=== PATIENT | female | born 1970 | race American Indian/Alaskan Native ===

== ENCOUNTER 2016-07-09 06:49 | Emergency (ER) | payer BC ==
[2016-07-09 08:06] VITALS: BP 122/75
--- NOTE | 2016-07-09 08:40 | Emergency Department Report ---
ED General Adult HPI - General Chief complaint: Sore Throat Stated complaint: BODY ACHES/THROAT PAIN Time Seen by Provider: 07/09/16 08:18 Source: patient Mode of arrival: Ambulatory Limitations: No Limitations - History of Present Illness Initial comments: Patient presents with one-month (onset 06/03/16) history of burning type pain in throat person worsened when she lays down. Reports feeling of fullness in throat when in reclining position. States no response on amoxicillin and benzonatate 2 prescribed by PCP. Denies SOB, chest pain, weakness, tingling, numbness, abdomen or flank pain, urinary symptoms. Denies personal/family hx of SD. Also c/o chronic right knee pain and intermittent migraine. States HX of migraine not responding to Tramadol. Denies migraine as of today. LMP: Partial hysterectomy 2012. - Related Data Home Medications Medication Instructions Recorded Confirmed Last Taken traMADol 50 mg PO Q6H PRN 09/19/15 09/19/15 09/19/15 Previous Rx's Medication Instructions Recorded Last Taken Type ALPRAZolam [Xanax] 0.5 mg PO BID PRN #14 tab 03/26/13 09/19/15 Rx Albuterol Sulfate [Ventolin HFA] 2 puff IH Q4H PRN #1 hfa.aer.ad 09/20/15 Unknown Rx Azithromycin [Zithromax] 250 mg PO DAILY #1 pkg 09/20/15 Unknown Rx Loratadine [Claritin] 10 mg PO DAILY #30 tablet 09/20/15 Unknown Rx Prednisone [predniSONE 10 mg 10 mg PO .TAPER #1 tab.ds.pk 09/20/15 Unknown Rx (6-Day Pack, 21 Tabs)] Promethazine /Codeine 5 ml PO Q6H PRN #150 ml 09/20/15 Unknown Rx [Phenergan/Codeine 6.25-10 mg/5 ml] Omeprazole 20 mg PO QDAY #14 capsule. 07/09/16 Unknown Rx Allergies Allergy/AdvReac Type Severity Reaction Status Date / Time No Known Allergies Allergy Verified 07/09/16 08:01 ED Review of Systems ROS: Stated complaint: BODY ACHES/THROAT PAIN Other details as noted in HPI Comment: All other systems reviewed and negative ED Past Medical Hx - Past Medical History Additional medical history: Breast cancer - Surgical History Hx Breast Surgery: Yes (Double mastectomy) - Social History Smoking Status: Never Smoker Substance Use Type: None - Medications Home Medications: Home Medications Medication Instructions Recorded Confirmed Last Taken Type ALPRAZolam [Xanax] 0.5 mg PO BID PRN #14 tab 03/26/13 09/19/15 09/19/15 Rx traMADol 50 mg PO Q6H PRN 09/19/15 09/19/15 09/19/15 History Albuterol Sulfate [Ventolin HFA] 2 puff IH Q4H PRN #1 hfa.aer.ad 09/20/15 Unknown Rx Azithromycin [Zithromax] 250 mg PO DAILY #1 pkg 09/20/15 Unknown Rx Loratadine [Claritin] 10 mg PO DAILY #30 tablet 09/20/15 Unknown Rx Prednisone [predniSONE 10 mg 10 mg PO .TAPER #1 tab.ds.pk 09/20/15 Unknown Rx (6-Day Pack, 21 Tabs)] Promethazine /Codeine 5 ml PO Q6H PRN #150 ml 09/20/15 Unknown Rx [Phenergan/Codeine 6.25-10 mg/5 ml] Omeprazole 20 mg PO QDAY #14 capsule. 07/09/16 Unknown Rx ED Physical Exam - General Limitations: No Limitations General appearance: alert, in no apparent distress - Head Head exam: Present: atraumatic, normocephalic - Eye Eye exam: Present: normal appearance, PERRL, EOMI. Absent: scleral icterus, conjunctival injection, periorbital swelling, periorbital tenderness - ENT ENT exam: Present: normal exam, normal orophraynx, mucous membranes moist, TM's normal bilaterally. Absent: normal external ear exam - Neck Neck exam: Present: normal inspection, full ROM. Absent: tenderness, meningismus, lymphadenopathy - Respiratory Respiratory exam: Present: normal lung sounds bilaterally. Absent: respiratory distress, wheezes, rales, rhonchi, stridor, chest wall tenderness, accessory muscle use, decreased breath sounds, prolonged expiratory - Cardiovascular Cardiovascular Exam: Present: regular rate, normal rhythm - GI/Abdominal GI/Abdominal exam: Present: soft, normal bowel sounds. Absent: distended, tenderness, guarding, rebound, rigid, organomegaly - Extremities Exam Extremities exam: Present: normal inspection, full ROM, normal capillary refill. Absent: tenderness, pedal edema, joint swelling, calf tenderness - Back Exam Back exam: Present: normal inspection, full ROM. Absent: tenderness, CVA tenderness (R), CVA tenderness (L) - Neurological Exam Neurological exam: Present: alert, oriented X3, normal gait, reflexes normal. Absent: motor sensory deficit - Psychiatric Psychiatric exam: Present: normal affect, normal mood - Skin Skin exam: Present: warm, dry, intact, normal color. Absent: rash ED Course Vital Signs 07/09/16 08:01 Temperature 98.2 F Pulse Rate 88 Respiratory 16 Rate Blood Pressure 122/75 O2 Sat by Pulse 98 Oximetry Critical care attestation.: If time is entered above; I have spent that time in minutes in the direct care of this critically ill patient, excluding procedure time. ED Disposition Clinical Impression: Heart burn Disposition: DISCHARGED TO HOME OR SELFCARE Is pt being admited?: No Does the pt Need Aspirin: No Condition: Stable Instructions: Gastroesophageal Reflux Disease (ED) Additional Instructions: Follow instructions for care. Use medication as prescribed. Follow up with GI specialist for heart burn. Follow up with your PCP for chronic knee pain, migraine and follow up. Return to ED for new or worsening symptoms. Prescriptions: Omeprazole 20 mg PO QDAY #14 capsule. Referrals: KIANA CUENCA MD [Primary Care Provider] - 2-3 Days MATTHIAS ALEX MD [Staff Physician] - 2-3 Days
== END 2016-07-09 08:58 | disposition home or self-care (01) ==
LOC: ED 06:49
DX: R12 Heartburn (principal); G43.909 Migraine, unspecified, not intractable, without status migrainosus
CPT/HCPCS: 99282